=== PATIENT | female | born 1990 ===

== ENCOUNTER 2016-11-23 17:16 | Observation (INO) | payer BC ==
[2016-11-23 17:33] VITALS: RESP 20
[2016-11-23] MEDS ORDERED: DiphenhydrAMINE 50 mg/ml Inj IVP STA (18:37)
[2016-11-23] MEDS ORDERED: Sodium Chloride 0.9% 1,000 ML IV ONE (18:41)
[2016-11-23 18:56] LABS: RBC URINE < 1 /hpf (0-3); URINE BACTERIA OCC (<OCC); URINE BILIRUBIN NEGATIVE (NEGATIVE); URINE BLOOD NEGATIVE (NEGATIVE); URINE COLOR Yellow (YELLOW); URINE GLUCOSE (UA) NORMAL (Normal); URINE KETONE NEGATIVE (NEGATIVE); URINE LEUKOCYTE ESTERASE NEG Leu/uL (Negative); URINE PROTEIN NEGATIVE (NEGATIVE); URINE UROBILINOGEN NORMAL mg/dL (0.2-1.0); WBC URINE 2 /hpf (0-5)
--- NOTE | 2016-11-23 18:56 | C.PDOC ---
History Of Present Illness 26 yo female w/PMHx of migraine come in for evaluation of gradual onset of B/L temples headache for past 3 days. Pt describes headache as throbbing, localized associated with light and noise sensitivity, nausea. Pt admits, similar sx in past and c/w " my usual migraine headache". Pt admits, takes Imitrex " and other pain pill" at home without improvement. Otherwise, pt denies recent illness, fever, chills, denies worse headache of life, visual changes, focal deficits, neck apin, drooling, dysphagia, dyspnea, CP, SOB, cough, abd. pain, V/D, UTI sx. Pt recall last MRI of head " long time ago" and reports to be normal. Pt is under Neurology care in [facility]. Ambulate to Ed for evaluation, not in any apparent distress. Time Seen by Provider: 11/23/16 18:16 Chief Complaint (Nursing): Headache History Per: Patient History/Exam Limitations: no limitations Onset/Duration Of Symptoms: Days (3) Current Symptoms Are (Timing): Still Present Severity: Mild Quality: "Pain", Other (Throbbing) Preceeding Symptoms: None. denies: Visual Disturbances, Known Migraine Symptoms Associated Symptoms: Other (Light and noise sensitivity) Recent travel outside of the [place]: No Past Medical History Reviewed: Historical Data, Nursing Documentation, Vital Signs Vital Signs: Last Vital Signs Temp 98.3 F 11/23/16 17:32 Pulse 92 H 11/23/16 17:32 Resp 20 11/23/16 17:32 BP 105/76 11/23/16 17:32 Pulse Ox 99 11/23/16 21:10 - Medical History PMH: Migraine Family History: States: Unknown Family Hx - Social History Hx Tobacco Use: No Hx Alcohol Use: No Hx Substance Use: No - Immunization History Hx Tetanus Toxoid Vaccination: No Hx Influenza Vaccination: No Hx Pneumococcal Vaccination: No Review Of Systems Except As Marked, All Systems Reviewed And Found Negative. Constitutional: Negative for: Fever, Chills Eyes: Negative for: Vision Change Cardiovascular: Negative for: Chest Pain Respiratory: Negative for: Shortness of Breath Gastrointestinal: Negative for: Vomiting, Abdominal Pain, Diarrhea Genitourinary: Negative for: Dysuria, Frequency Musculoskeletal: Negative for: Neck Pain Neurological: Positive for: Headache, Other (Light and noise sensitivity) Physical Exam - Physical Exam Appears: Well, Non-toxic, No Acute Distress Skin: Normal Color, Warm, No Rash Head: Normacephalic Eye(s): bilateral: PERRL Ear(s): Bilateral: Normal Nose: Normal, No Discharge Oral Mucosa: Moist, No Drooling Throat: Normal, No Erythema, No Exudate, No Drooling Neck: Normal ROM, Supple Chest: Symmetrical Cardiovascular: Rhythm Regular Respiratory: No Decreased Breath Sounds, No Accessory Muscle Use, No Stridor, No Wheezing Gastrointestinal/Abdominal: Soft, No Tenderness, No Distention, No Guarding Back: No CVA Tenderness Extremity: Normal ROM, No Pedal Edema Neurological/Psych: Oriented x3, Normal Speech, Normal Motor, Normal Sensation, Normal Reflexes ED Course And Treatment - Laboratory Results Result Diagrams: 11/23/16 19:06 11/23/16 19:06 O2 Sat by Pulse Oximetry: 99 ED OBSERVATION Discharge: Yes Date of observation admission: 11/23/16 Time of observation admission: 17:23 - Observation admission statement Patient is being placed in observation because:: Migraine headache - Goals of Observation Goals of observation are:: Diagnostics, sx tx, re-eval - Progress Note Progress Note: 11/23/16 At 18:40, pt resting comfortably, not in nay apaprent distress. Afebrile, hemodynamicaly stable. Neurologicaly intact. At20:05, diagnostics review, UA results review and appears normal. Pt reports, mild improvement in headache. Afebrile, hemodynamicalys table. Non-toxic. Tolerant po well in ED. neurologicaly intact. At 21:05, pt reports moderate improvement in headache. Afebrile, hemodynamicaly stable. Non-toxic. neurologicaly intact. Pt has clinical findings c/w migraine headache exacerbation. Pt advised. ref. to F/U with Neuro at [facility] Disposition Counseled Patient/Family Regarding: Studies Performed, Diagnosis, Need For Followup - Disposition Disposition: HOME/ ROUTINE Disposition Time: 21:10 Condition: STABLE - Clinical Impression Clinical Impression: Migraine - Scribe Statement The provider has reviewed the documentation as recorded by the Madysonibtheresa Miller All medical record entries made by the Madysonibtheresa were at my direction and personally dictated by me. I have reviewed the chart and agree that the record accurately reflects my personal performance of the history, physical exam, medical decision making, and the department course for this patient. I have also personally directed, reviewed, and agree with the discharge instructions and disposition.
[2016-11-23] MEDS ORDERED: DiphenhydrAMINE 50 mg/ml Inj ONE (19:00)
[2016-11-23 19:09] LABS: BASO % 0.4 % (0.0-2.0); EOS # 0.2 K/uL (0.0-0.7); EOS % 3.1 % (0.0-4.0); HEMATOCRIT 40.6 % (34.0-47.0); LYMPH # 3.6 K/uL (1.0-4.3); LYMPH % 51.8 % (20.0-40.0); MEAN CORPUSCULAR HEMOGLOBIN 30.2 pg (27.0-31.0); MEAN CORPUSCULAR HGB CONC 33.5 g/dL (33.0-37.0); MEAN PLATELET VOLUME 8.2 fL (7.2-11.7); MONO # 0.5 K/uL (0.0-0.8); MONO % 6.7 % (0.0-10.0); NRBC % 0.1 % (0.0-2.0); RED CELL DISTRIBUTION WIDTH 12.3 % (11.5-14.5); WHITE BLOOD COUNT 6.9 K/uL (4.8-10.8)
[2016-11-23 19:18] LABS: CHLORIDE 100 mmol/L (98-107); SODIUM 139 mmol/L (132-148)
[2016-11-23 19:19] LABS: POTASSIUM 3.7 mmol/L (3.6-5.2)
[2016-11-23 19:21] LABS: GFR AFRICAN-AMERICAN > 60
[2016-11-23 19:22] LABS: BLOOD UREA NITROGEN 8 mg/dL (7-17); CALCIUM 8.9 mg/dl (8.6-10.4); CARBON DIOXIDE 30 mmol/L (22-30); GLUCOSE,RANDOM 71 mg/dL (65-105)
[2016-11-23 21:21] VITALS: BP 110/70; PULSE 77; TEMP 98; O2SAT 100
== END 2016-11-23 21:10 | disposition home or self-care (01) ==
LOC: C.ER 17:16 → SUPCPDRO 17:16 → C.9OBSV 17:41
PROVIDERS: ADMIT Internal Medicine; ATTEND Internal Medicine
DX: G43.909 Migraine, unspecified, not intractable, without status migrainosus (principal)
CPT/HCPCS: 36415; 80048; 81001; 85025; 96360; 96374; G0378; J1200; J1885; J2765

== ENCOUNTER 2017-01-15 21:08 | Emergency (ER) | payer BC ==
[2017-01-15] MEDS ORDERED: Sodium Chloride 0.9% 1,000 ML IV ONE (23:03)
[2017-01-15] MEDS ORDERED: Sodium Chloride 0.9% 1,000 ML ONE (23:15)
[2017-01-15 23:21] LABS: BASO % 0.3 % (0.0-2.0); EOS # 0.2 K/uL (0.0-0.7); EOS % 3.3 % (0.0-4.0); HEMATOCRIT 36.7 % (34.0-47.0); LYMPH # 4.3 K/uL (1.0-4.3); LYMPH % 59.8 % (20.0-40.0); MEAN CELL VOLUME 90.5 fL (81.0-99.0); MEAN CORPUSCULAR HEMOGLOBIN 30.8 pg (27.0-31.0); MEAN PLATELET VOLUME 8.5 fL (7.2-11.7); MONO # 0.4 K/uL (0.0-0.8); MONO % 6.1 % (0.0-10.0); NRBC % 0.1 % (0.0-2.0); RBC URINE 1 /hpf (0-3); RED CELL DISTRIBUTION WIDTH 11.9 % (11.5-14.5); URINE BILIRUBIN NEGATIVE (NEGATIVE); URINE BLOOD NEGATIVE (NEGATIVE); URINE COLOR Yellow (YELLOW); URINE GLUCOSE (UA) NORMAL (Normal); URINE KETONE NEGATIVE (NEGATIVE); URINE LEUKOCYTE ESTERASE NEG Leu/uL (Negative); URINE PROTEIN NEGATIVE (NEGATIVE); URINE UROBILINOGEN NORMAL mg/dL (0.2-1.0); WHITE BLOOD COUNT 7.1 K/uL (4.8-10.8)
[2017-01-15] MEDS ORDERED: Iohexol 240 (50 ml) PO STA (23:25)
[2017-01-15 23:30] LABS: CHLORIDE 101 mmol/L (98-107)
[2017-01-15 23:31] LABS: POTASSIUM 3.5 mmol/L (3.6-5.2); SODIUM 139 mmol/L (132-148)
[2017-01-15 23:33] LABS: ALB/GLOB RATIO 1.3 (1.0-2.1); AST/SGOT 30 U/L (14-36); BILIRUBIN,TOTAL 0.5 mg/dL (0.2-1.3); BLOOD UREA NITROGEN 12 mg/dL (7-17); CARBON DIOXIDE 28 mmol/L (22-30); GFR AFRICAN-AMERICAN > 60; TOTAL PROTEIN 7.1 g/dL (6.3-8.3)
[2017-01-15 23:34] LABS: ALKALINE PHOSPHATASE 45 U/L (38-126); ALT/SGPT 32 U/L (9-52); CALCIUM 8.9 mg/dl (8.6-10.4); GLUCOSE,RANDOM 86 mg/dL (65-105)
[2017-01-15] MEDS ORDERED: Iohexol 240 (50 ml) ONE (23:40)
[2017-01-16] MEDS ORDERED: Iodixanol 320 MG/ML 100 ML BOTTLE IV ONE (00:11)
[2017-01-16] MEDS ORDERED: Morphine 4 MG/ML VIAL ONE (02:33)
[2017-01-16] MEDS ORDERED: cefTRIAXone (Rocephin) 250 mg Inj IM STA (04:11)
--- NOTE | 2017-01-16 04:52 | C.PDOC ---
Time Seen by Provider: 01/15/17 22:57 Chief Complaint (Nursing): Abdominal Pain History Per: Patient, Family Onset/Duration Of Symptoms: Days (2) Current Symptoms Are (Timing): Worse Severity: Moderate Location Of Pain/Discomfort: RLQ Associated Symptoms: Nausea Alleviating Factors: None Additional History Per: Prior Records Abnormal Vaginal Bleeding: No Past Medical History Reviewed: Historical Data, Nursing Documentation, Vital Signs Vital Signs: Last Vital Signs Temp 98.1 F 01/16/17 03:01 Pulse 75 01/16/17 03:01 Resp 18 01/16/17 03:01 BP 113/71 01/16/17 03:01 Pulse Ox 99 01/16/17 04:53 - Medical History PMH: Migraine Surgical History: No Surg Hx Family History: States: Unknown Family Hx - Social History Hx Tobacco Use: No Hx Alcohol Use: No Hx Substance Use: No - Immunization History Hx Tetanus Toxoid Vaccination: No Hx Influenza Vaccination: No Hx Pneumococcal Vaccination: No Review Of Systems Except As Marked, All Systems Reviewed And Found Negative. Constitutional: Negative for: Fever, Weakness Cardiovascular: Negative for: Chest Pain Respiratory: Negative for: Shortness of Breath Gastrointestinal: Positive for: Nausea, Abdominal Pain. Negative for: Vomiting , Diarrhea Genitourinary: Negative for: Dysuria, Vaginal Bleeding Musculoskeletal: Negative for: Neck Pain Skin: Negative for: Rash Neurological: Negative for: Weakness, Numbness, Seizures, Altered Mental Status Physical Exam - Physical Exam Appears: Non-toxic, No Acute Distress Skin: Normal Color, Warm, Dry, No Rash Head: Atraumatic, Normacephalic Eye(s): bilateral: Normal Inspection, PERRL, EOMI Neck: Normal ROM, Supple Cardiovascular: Rhythm Regular Respiratory: Normal Breath Sounds, No Accessory Muscle Use Gastrointestinal/Abdominal: Soft, No Tenderness Back: No CVA Tenderness Pelvic: No Vaginal Bleeding, Vaginal Discharge (white), Cervical Motion Tenderness, Adnexal Tenderness (right) Extremity: Normal ROM Neurological/Psych: Oriented x3, Normal Motor, Normal Sensation ED Course And Treatment - Laboratory Results Result Diagrams: 01/15/17 23:10 01/15/17 23:10 Lab Interpretation: No Acute Changes Urine POC: Negative O2 Sat by Pulse Oximetry: 99 Pulse Ox Interpretation: Normal - CT Scan/US CT abd/pelv Other Rad Studies (CT/US): Read By Radiologist, Radiology Report Reviewed CT/US Interpretation: Prominent vessels within the pelvis. Pelvic US Other Rad Studies (CT/US): Read By Radiologist, Radiology Report Reviewed CT/US Interpretation: NAD Progress - Interventions Interventions:: Observation, Intravenous fluid - Medications Administered Intravenous: Antiemetic, NSAID, Opiate - Data Reviewed Data Reviewed: Lab, Diagnostic imaging, Old records - Patient Status Patient status: Mostly improved - Continuity of Care Discussed patient case with:: Patient, ED Nurse - Patient Plan Patient Plan: Discharge, F/U with PCP Disposition Counseled Patient/Family Regarding: Studies Performed, Diagnosis, Need For Followup, Rx Given - Disposition Disposition: HOME/ ROUTINE Disposition Time: 05:01 Condition: IMPROVED Additional Instructions: Follow up with your Outpatient Coding Specialist this week. Return to the ER if you develop fever, vomiting, worsening of symptoms or if you have any other concerns. Prescriptions: Doxycycline Hyclate 100 mg PO BID #28 cap Ibuprofen [Motrin Tab] 600 mg PO Q8 PRN #30 tab PRN Reason: Pain, Moderate (4-7) Metronidazole [Flagyl] 500 mg PO BID #28 tab Instructions: Pelvic Inflammatory Disease (ED) - Clinical Impression Clinical Impression: PID (acute pelvic inflammatory disease)
[2017-01-16 05:31] VITALS: BP 96/65; PULSE 78; RESP 16; TEMP 97.6; O2SAT 98
--- NOTE | 2017-01-16 09:42 | CT ---
PROCEDURE: CT Abdomen and Pelvis with contrast HISTORY: RLQ pain COMPARISON: 06/19/2013 TECHNIQUE: Contrast dose: 100 mL Visipaque 320 Radiation dose: Total exam DLP = 339.58 mGy-cm. This CT exam was performed using one or more of the following dose reduction techniques: Automated exposure control, adjustment of the mA and/or kV according to patient size, and/or use of iterative reconstruction technique. FINDINGS: LOWER THORAX: Bilateral breast augmentation prostheses. No infiltrate/ effusion. LIVER: Unremarkable. No gross lesion or ductal dilatation. GALLBLADDER AND BILE DUCTS: Unremarkable. PANCREAS: Unremarkable. No gross lesion or ductal dilatation. SPLEEN: Unremarkable. ADRENALS: Unremarkable. No mass. KIDNEYS AND URETERS: Unremarkable. No hydronephrosis. No solid mass. VASCULATURE: No aortic aneurysm. Prominent pelvic veins bilaterally raising concern for pelvic congestion syndrome. Please correlate. BOWEL: Unremarkable. No obstruction. No gross mural thickening. APPENDIX: Normal appendix. PERITONEUM: Trace fluid in cul-de-sac. LYMPH NODES: Unremarkable. No enlarged lymph nodes. BLADDER: Unremarkable. REPRODUCTIVE: Normal uterus. BONES: No acute fracture. OTHER FINDINGS: None. IMPRESSION: No evidence of acute appendicitis. Prominent pelvic veins raises suspicion of pelvic congestion syndrome. Please correlate. No other acute abnormality. Preliminary interpretation of this examination was reported by [facility] at 2 a.m. on 01/16/2017. There is concurrence of this report with the preliminary interpretation.
--- NOTE | 2017-01-16 11:39 | US ---
HISTORY: Right pelvic pain COMPARISON: None available. TECHNIQUE: Transabdominal and transvaginal FINDINGS: UTERUS: Measures 7.4 x 3.3 x 5.0 cm. Normal in size and appearance. No fibroid or other mass lesion seen. ENDOMETRIUM: Measures 4 mm in diameter. Unremarkable. CERVIX: No cervical abnormality identified. RIGHT OVARY: Measures 3.6 x 2.1 x 3.7 cm. No solid mass. Normal flow. LEFT OVARY: Measures 2.6 x 1.8 x 3.0 cm. No solid mass. Normal flow. FREE FLUID: No significant free fluid noted. OTHER FINDINGS: None. IMPRESSION: Unremarkable pelvic ultrasound examination.
== END 2017-01-16 05:44 | disposition home or self-care (01) ==
LOC: C.ER 21:08
DX: N73.9 Female pelvic inflammatory disease, unspecified (principal)
CPT/HCPCS: 74177; 76830; 76856; 80053; 81001; 84703; 85025; 87491; 87591; 96361; 96372; 96374; 96375; 99285; J0696; J1885; J2270; J2405; J7040; Q9966; Q9967

== ENCOUNTER 2017-10-02 20:39 | Emergency (ER) | payer BC ==
--- NOTE | 2017-10-02 22:49 | CT ---
EXAM: CT Head Without Intravenous Contrast CLINICAL HISTORY: 27 years old, female; Pain; Headache; Headache not specified; Additional info: Moderate left sided headache TECHNIQUE: Axial computed tomography images of the head/brain without intravenous contrast. All CT scans at this facility use one or more dose reduction techniques, viz.: automated exposure control; ma/kV adjustment per patient size (including targeted exams where dose is matched to indication; i.e. head); or iterative reconstruction technique. Coronal and sagittal reformatted images were created and reviewed. COMPARISON: No relevant prior studies available. FINDINGS: Brain: Hypoattenuating focus in the right middle cranial fossa with CSF attenuation measuring up to 3 cm in maximal dimension, appearance most consistent with right middle cranial fossa arachnoid cyst. No hemorrhage. No significant white matter disease. No edema. Benign calcifications/dural calcification calcification. Ventricles: No hydrocephalus. Bones: Skull is intact. Sinuses: No acute sinusitis. Mastoid air cells: No mastoid effusion. Soft tissue: Question implant anterior to the nasal bone. Correlate clinically. IMPRESSION: Hypoattenuating focus in the right middle cranial fossa with CSF attenuation measuring up to 3 cm in maximal dimension, appearance most consistent with right middle cranial fossa arachnoid cyst. Further evaluation can be performed if MRI as warranted. Additional details/findings as above.
--- NOTE | 2017-10-02 23:16 | C.PDOC ---
History Of Present Illness 27 year old female with a PMHx of migraines presents complaining of left-sided headache, different from her typical migraine headaches. Patient reports her scalp is sensitive to touch. Took her migraine medication as well as naproxen, with no improvement. Patient states she had a similar episode 7 years ago, and had a 5 day work-up in a [facility] but cannot recall the diagnosis ( possible brain cyst). Also notes that she has seen a neurologist in [place] before. Denies any fall/injury, weakness, numbness, visual changes, or changes in speech. Time Seen by Provider: 10/02/17 21:00 Chief Complaint (Nursing): Headache History Per: Patient History/Exam Limitations: no limitations Onset/Duration Of Symptoms: Days (x5) Current Symptoms Are (Timing): Still Present Past Medical History Reviewed: Historical Data, Nursing Documentation, Vital Signs Vital Signs: Last Vital Signs Temp 98 F 10/02/17 23:28 Pulse 73 10/02/17 23:28 Resp 20 10/02/17 23:28 BP 114/79 10/02/17 23:28 Pulse Ox 99 10/03/17 04:28 - Medical History PMH: Migraine Family History: States: Unknown Family Hx - Social History Hx Tobacco Use: No Hx Alcohol Use: Yes Hx Substance Use: No - Immunization History Hx Tetanus Toxoid Vaccination: No Hx Influenza Vaccination: No Hx Pneumococcal Vaccination: No Review Of Systems Except As Marked, All Systems Reviewed And Found Negative. Constitutional: Negative for: Other (Fall/injury) Eyes: Negative for: Vision Change Neurological: Positive for: Other (Pain to left side of scalp). Negative for: Weakness, Numbness, Change in Speech Physical Exam - Physical Exam Appears: Non-toxic, No Acute Distress Skin: Normal Color, Warm, Dry Head: Normacephalic, Tenderness (to the left mid-scalp area), No Swelling, No Laceration, No Other (External mass or hematoma) Eye(s): bilateral: Normal Inspection, PERRL, EOMI Ear(s): Bilateral: Normal Nose: Normal Oral Mucosa: Moist Neck: Normal ROM, No Midline Cervical Tenderness, Supple Chest: Symmetrical Cardiovascular: Rhythm Regular, No Murmur Respiratory: Normal Breath Sounds, No Accessory Muscle Use Gastrointestinal/Abdominal: Soft, No Tenderness, No Distention Extremity: Bilateral: Atraumatic, Normal Color And Temperature, Normal ROM Neurological/Psych: Oriented x3, Normal Speech, Normal Cognition, Normal Cranial Nerves, No Cerebellar Signs, Normal Motor, Normal Sensation, Normal Reflexes Gait: Steady ED Course And Treatment O2 Sat by Pulse Oximetry: 99 (RA) Pulse Ox Interpretation: Normal - CT Scan/US CT Head Other Rad Studies (CT/US): Read By Radiologist, Radiology Report Reviewed CT/US Interpretation: FINDINGS: Brain: Hypoattenuating focus in the right middle cranial fossa with CSF attenuation measuring up to. 3 cm in maximal dimension, appearance most consistent with right middle cranial fossa arachnoid. cyst. No hemorrhage. No significant white matter disease. No edema. Benign calcifications/dural. calcification calcification. Ventricles: No hydrocephalus. Bones: Skull is intact. Sinuses: No acute sinusitis. Mastoid air cells: No mastoid effusion. Soft tissue: Question implant anterior to the nasal bone. Correlate clinically. IMPRESSION: Hypoattenuating focus in the right middle cranial fossa with CSF attenuation measuring up to 3 cm. in maximal dimension, appearance most consistent with right middle cranial fossa arachnoid cyst. Further evaluation can be performed if MRI as warranted. Additional details/findings as above. Progress Note: Pt given Toradol IM. CT Head ordered. Patient has remained stable in the ER, no neuro deficits and is laughing with family at bedside. CT findings discussed w/ patient, who agrees with plan for outpatient follow up, and will call her neurologist in [place] tomorrow for appointment. Return precautions discussed with patient who understand and agreed to pain. Disposition Counseled Patient/Family Regarding: Studies Performed, Diagnosis, Need For Followup - Disposition Referrals: Non [facility] Provider, [Primary Care Provider] - Disposition: HOME/ ROUTINE Disposition Time: 23:13 Condition: STABLE Additional Instructions: Continue naproxen BID may add tylenol PO Please follow up with your neurologist tomorrow Return to ER if worse Instructions: Headache, Adult (DC), Cysts in the Brain Forms: [facility] (Yi), Work Excuse - Clinical Impression Clinical Impression: Headache, Arachnoid cyst - PA / [employer] APPLICATION ARCHITECT / Resident Statement MD/DO has reviewed & agrees with the documentation as recorded. - Scribe Statement The provider has reviewed the documentation as recorded by the Scribe (Sunshine Yañez) All medical record entries made by the Scribe were at my direction and personally dictated by me. I have reviewed the chart and agree that the record accurately reflects my personal performance of the history, physical exam, medical decision making, and the department course for this patient. I have also personally directed, reviewed, and agree with the discharge instructions and disposition.
[2017-10-02 23:28] VITALS: BP 114/79; PULSE 73; RESP 20; TEMP 98
[2017-10-03 02:58] VITALS: O2SAT 99
== END 2017-10-02 23:29 | disposition home or self-care (01) ==
LOC: C.ER 20:39 → SUPCPDRO 20:39 → C.ER 23:29
DX: R51 Headache (principal); G93.0 Cerebral cysts
CPT/HCPCS: 70450; 96372; 99284; J1885

== ENCOUNTER 2018-02-07 23:56 | Emergency (ER) | payer BC ==
[2018-02-08 00:10] VITALS: PULSE 82; O2SAT 100
[2018-02-08 00:31] LABS: SQUAMOUS EPITHIAL 2 /hpf (0-5); URINE BACTERIA RARE (<OCC); URINE BILIRUBIN NEGATIVE (NEGATIVE); URINE BLOOD NEGATIVE (NEGATIVE); URINE CLARITY Hazy (Clear); URINE COLOR Yellow (YELLOW); URINE GLUCOSE (UA) NORMAL (Normal); URINE LEUKOCYTE ESTERASE NEG Leu/uL (Negative); URINE PROTEIN NEGATIVE (NEGATIVE); URINE UROBILINOGEN NORMAL mg/dL (0.2-1.0)
[2018-02-08 00:32] LABS: HCG,QUALITATIVE URINE POSITIVE (NEGATIVE)
--- NOTE | 2018-02-08 00:33 | C.PDOC ---
History Of Present Illness 27 year old female presents to the ER with a complaint of hypogastric pain, dysuria, and urinary frequency for the past 3 days. Denies fever or vaginal bleeding. Chief Complaint (Nursing): Female Genitourinary History Per: Patient History/Exam Limitations: no limitations Onset/Duration Of Symptoms: Days Current Symptoms Are (Timing): Still Present Location Of Pain/Discomfort: Other (Hypogastric) Associated Symptoms: Urinary Symptoms (Dysuria). denies: Fever Exacerbating Factors: None Alleviating Factors: None Recent travel outside of the [place]: No Abnormal Vaginal Bleeding: No Past Medical History Reviewed: Historical Data, Nursing Documentation, Vital Signs Vital Signs: Last Vital Signs Temp 99.4 F 02/08/18 00:07 Pulse 82 02/08/18 00:07 Resp 18 02/08/18 00:07 BP 126/74 02/08/18 00:07 Pulse Ox 100 02/08/18 04:00 - Medical History PMH: Migraine Family History: States: Unknown Family Hx - Social History Hx Tobacco Use: No Hx Alcohol Use: Yes Hx Substance Use: No - Immunization History Hx Tetanus Toxoid Vaccination: No Hx Influenza Vaccination: No Hx Pneumococcal Vaccination: No Review Of Systems Constitutional: Negative for: Fever Cardiovascular: Negative for: Chest Pain, Palpitations Respiratory: Negative for: Cough, Shortness of Breath Gastrointestinal: Positive for: Abdominal Pain. Negative for: Nausea, Vomiting Genitourinary: Positive for: Dysuria. Negative for: Vaginal Bleeding Physical Exam - Physical Exam Appears: Non-toxic, No Acute Distress Skin: Normal Color, Warm, Dry Head: Atraumatic, Normacephalic Eye(s): bilateral: Normal Inspection Oral Mucosa: Moist Neck: Normal, Supple Chest: Symmetrical, No Tenderness Cardiovascular: Rhythm Regular Respiratory: Normal Breath Sounds, No Rales, No Rhonchi, No Wheezing Gastrointestinal/Abdominal: Soft, Tenderness (Mild hypogastric), No Guarding, No Rebound Back: No CVA Tenderness Neurological/Psych: Oriented x3, Normal Speech ED Course And Treatment O2 Sat by Pulse Oximetry: 100 (Room air) Pulse Ox Interpretation: Normal Progress Note: Urinalysis ordered. Disposition Counseled Patient/Family Regarding: Diagnosis - Disposition Referrals: Non [facility] Provider, [Primary Care Provider] - [facility] at [facility] [Outside] Disposition: HOME/ ROUTINE Disposition Time: 03:58 Condition: STABLE Prescriptions: Acetaminophen [Tylenol 325mg tab] 650 mg PO Q6 #20 tab Multivit/Folic Acid/I [ Plus] 1 tab PO DAILY #30 tab Instructions: Symptoms, - The Second Month, Round Ligament Pain Forms: [facility] (Greek) - POA Present On Arrival: None - Clinical Impression Clinical Impression: , Round ligament pain - Scribe Statement The provider has reviewed the documentation as recorded by the Scribtheresa Donahue All medical record entries made by the Scribtheresa were at my direction and personally dictated by me. I have reviewed the chart and agree that the record accurately reflects my personal performance of the history, physical exam, medical decision making, and the department course for this patient. I have also personally directed, reviewed, and agree with the discharge instructions and disposition.
[2018-02-08 04:14] VITALS: BP 92/56; RESP 16; TEMP 98.3
--- NOTE | 2018-02-08 08:27 | US ---
PROCEDURE: OB Pelvic Ultrasound HISTORY: lower abd pain/ COMPARISON: None available. FINDINGS: UTERUS: Single Live intrauterine gestation. CRL equivalent to 6 weeks 5 days gestatioin Gestational sac diameter equivalent to 6 weeks 0 days gestation age (Ultrasound estimated): 6 weeks 3 days Date of delivery (Ultrasound estimated) : 10/01/2018 Heart rate: 125 bpm. Sherry-gestational hemorrhage: None. 3-4 mm yolk sac visualized Uterus measures 7.7 x 4.3 x 5.6 cm. No mass CERVIX: The cervix measures 3.9 cm in length and is closed. RIGHT OVARY: Measures 3.3 x 1.3 x 2.3 cm. No mass. Normal flow. LEFT OVARY: Measures 2.4 x 1.8 x 2.3 cm. No mass. Normal flow. FREE FLUID: None. OTHER FINDINGS: None. IMPRESSION: Single live intrauterine gestation of approximately 6 weeks 3 days. No subchorionic hemorrhage. heart rate 125. Cervix long and closed. The preliminary findings for this examination were reported by [facility] at 3:35 a.m. on 02/08/2018. There is concurrence of this report with the preliminary findings.
== END 2018-02-08 04:14 | disposition home or self-care (01) ==
LOC: C.ER 23:56 → SUPCPDRO 23:56 → C.ER 02-08 04:14
DX: O26.891 Other specified pregnancy related conditions, first trimester (principal); R10.2 Pelvic and perineal pain; Z3A.01 Less than 8 weeks gestation of pregnancy

== ENCOUNTER 2018-03-01 18:26 | Emergency (ER) | payer BC ==
[2018-03-01 18:41] VITALS: TEMP 98.6
--- NOTE | 2018-03-01 19:41 | C.PDOC ---
History Of Present Illness 27 year old female patient who is 9 weeks presents to the ER with dizziness, vertigo, nausea and headache. Patient states she also has SOB when walking up the stairs and lower abdominal pain. Patient denies chest pain, dysuria, urine incontinence, constipation, vomiting, diarrhea or vaginal bleeding. Time Seen by Provider: 03/01/18 19:18 Chief Complaint (Nursing): Dizziness/Lightheaded History Per: Patient History/Exam Limitations: no limitations Current Symptoms Are (Timing): Still Present Past Medical History Reviewed: Historical Data, Nursing Documentation, Vital Signs Vital Signs: Last Vital Signs Temp 98.6 F 03/01/18 18:34 Pulse 71 03/01/18 22:45 Resp 16 03/01/18 22:45 BP 96/57 L 03/01/18 22:45 Pulse Ox 100 03/01/18 22:45 - Medical History PMH: Migraine Family History: States: Unknown Family Hx - Social History Hx Tobacco Use: No Hx Alcohol Use: Yes Hx Substance Use: No - Immunization History Hx Tetanus Toxoid Vaccination: No Hx Influenza Vaccination: No Hx Pneumococcal Vaccination: No Review Of Systems Cardiovascular: Negative for: Chest Pain Respiratory: Positive for: Shortness of Breath (when walking up steps) Gastrointestinal: Positive for: Nausea, Abdominal Pain (low). Negative for: Vomiting, Diarrhea, Constipation Genitourinary: Negative for: Dysuria, Incontinence, Vaginal Bleeding Neurological: Positive for: Headache, Dizziness, Other (vertigo) Physical Exam - Physical Exam Appears: Well, Non-toxic, No Acute Distress Skin: Normal Color, Warm, Dry Head: Atraumatic, Normacephalic Eye(s): bilateral: Normal Inspection Ear(s): Bilateral: Normal Oral Mucosa: Moist Neck: Normal ROM, Supple Chest: Symmetrical, No Deformity Cardiovascular: Rhythm Regular Respiratory: Normal Breath Sounds, No Rales, No Rhonchi, No Wheezing Gastrointestinal/Abdominal: Soft, No Tenderness Back: No CVA Tenderness Extremity: Normal ROM (x4) Neurological/Psych: Oriented x3, Normal Speech, Normal Motor, Normal Sensation, Normal Reflexes Gait: Steady ED Course And Treatment - Laboratory Results Result Diagrams: 03/01/18 20:07 03/01/18 20:07 Lab Interpretation: No Acute Changes O2 Sat by Pulse Oximetry: 97 (RA) Pulse Ox Interpretation: Normal Progress Note: Patient treated with 2 liters of IV fluids, Zofran and Meclizine. She continues to feel dizzy but is less nauseated. She appears comfortable and is neurologically intact. Reevaluation Time: 23:46 Reassessment Condition: Improved Medical Decision Making Medical Decision Making: Impression: 9 weeks with dizziness, vertigo, nausea and headache Plans: -- blood work -- IV fluids -- UA Reassess: On re-eval, pt is afebrile, hemodynamically stable. Non-toxic. PulseOx 97% on RA. ENT: no acute findings. Uvula midline. Neck: Supple, (-) JVD. Lungs: CTA B/L, BS equal B/L. Abd: Soft, non-tender. Neurologically intact. Patient is advised to f/u with OBGYN in 1-2 days Disposition Counseled Patient/Family Regarding: Studies Performed, Diagnosis, Need For Followup, Rx Given - Disposition Referrals: [facility] [Outside] Disposition: HOME/ ROUTINE Disposition Time: 23:47 Condition: IMPROVED Additional Instructions: Encourage plenty of fluids and rest. Prescriptions: Meclizine [Meclizine*] 25 mg PO TID PRN #20 tab PRN Reason: Dizziness Ondansetron ODT [Zofran ODT] 1 odt PO TID PRN #10 odt PRN Reason: Nausea/Vomiting Instructions: Vertigo (a Type of Dizziness), - The Third Month Forms: [facility] (Vietnamese), Work Excuse - Clinical Impression Clinical Impression: , Vertigo - Scribe Statement The provider has reviewed the documentation as recorded by the Sarbjit Becerra Do Provider Attestation: All medical record entries made by the Sarbjit were at my direction and personally dictated by me. I have reviewed the chart and agree that the record accurately reflects my personal performance of the history, physical exam, medical decision making, and the department course for this patient. I have also personally directed, reviewed, and agree with the discharge instructions and disposition.
[2018-03-01] MEDS ORDERED: Sodium Chloride 0.9% 1,000 ML IV ONE ×2 (19:42→21:52)
[2018-03-01 20:12] LABS: BASO # 0.1 K/uL (0.0-0.2); BASO % 0.5 % (0.0-2.0); EOS # 0.1 K/uL (0.0-0.7); EOS % 1.2 % (0.0-4.0); HEMOGLOBIN 13.3 g/dL (11.0-16.0); LYMPH # 3.4 K/uL (1.0-4.3); LYMPH % 30.6 % (20.0-40.0); MEAN CELL VOLUME 90.3 fL (81.0-99.0); MEAN CORPUSCULAR HEMOGLOBIN 31.2 pg (27.0-31.0); MEAN CORPUSCULAR HGB CONC 34.6 g/dL (33.0-37.0); MEAN PLATELET VOLUME 7.7 fL (7.2-11.7); MONO # 0.7 K/uL (0.0-0.8); MONO % 6.2 % (0.0-10.0); NEUT # 6.8 K/uL (1.8-7.0); NEUT % 61.5 % (50.0-75.0); NRBC % 0.1 % (0.0-2.0); RBC 4.27 Mil/uL (3.80-5.20); RED CELL DISTRIBUTION WIDTH 12.1 % (11.5-14.5); WHITE BLOOD COUNT 11.1 K/uL (4.8-10.8)
[2018-03-01 20:27] LABS: ALB/GLOB RATIO 1.5 (1.0-2.1); ALBUMIN 4.2 g/dL (3.5-5.0); ALT/SGPT 23 U/L (9-52); AST/SGOT 19 U/L (14-36); BLOOD UREA NITROGEN 8 mg/dL (7-17); CALCIUM 9.3 mg/dl (8.6-10.4); GFR AFRICAN-AMERICAN > 60; GFR NON-AFRICAN AMERICAN > 60
[2018-03-01 20:47] LABS: SQUAMOUS EPITHIAL 5 /hpf (0-5); URINE BACTERIA FEW (<OCC); URINE BILIRUBIN NEGATIVE (NEGATIVE); URINE BLOOD NEGATIVE (NEGATIVE); URINE CLARITY Clear (Clear); URINE COLOR Yellow (YELLOW); URINE GLUCOSE (UA) NORMAL (Normal); URINE LEUKOCYTE ESTERASE TRACE Leu/uL (Negative); URINE PROTEIN NEGATIVE (NEGATIVE); URINE UROBILINOGEN NORMAL mg/dL (0.2-1.0)
[2018-03-01 22:46] VITALS: RESP 16
[2018-03-01 23:47] VITALS: BP 99/65; PULSE 67; O2SAT 97
== END 2018-03-02 00:06 | disposition home or self-care (01) ==
LOC: C.ER 18:26
DX: O26.891 Other specified pregnancy related conditions, first trimester (principal); R42 Dizziness and giddiness; Z3A.09 9 weeks gestation of pregnancy
CPT/HCPCS: 80053; 81001; 82948; 84702; 85025; 96361; 96374; 99285; J2405; J7030

== ENCOUNTER 2018-05-11 12:26 | Emergency (ER) | payer BC, MEDICAID ==
[2018-05-11 12:48] VITALS: BP 104/70; PULSE 88; TEMP 99.5; O2SAT 99; BMI 21.5
--- NOTE | 2018-05-11 13:30 | C.PDOC ---
History Of Present Illness 28 y/o female, 20 weeks , present to the ER complaining of nasal congestion and persistent dry cough which has been present for the past 3 days. Patient states that she took Tylenol without relief. Patient denies having fever, chills, CP, SOB, leg pain, nausea, vomiting, abdominal pain, and vaginal bleeding. Time Seen by Provider: 05/11/18 13:05 Chief Complaint (Nursing): Cough, Cold, Congestion History Per: Patient History/Exam Limitations: no limitations Onset/Duration Of Symptoms: Days Current Symptoms Are (Timing): Still Present Past Medical History Reviewed: Historical Data, Nursing Documentation, Vital Signs Vital Signs: Last Vital Signs Temp 99.5 F 05/11/18 12:46 Pulse 88 05/11/18 12:46 Resp 18 05/11/18 12:46 BP 104/70 05/11/18 12:46 Pulse Ox 99 05/11/18 12:46 - Medical History PMH: Migraine Other Surgeries: Hx of surgeries Family History: States: No Known Family Hx - Social History Hx Tobacco Use: No Hx Alcohol Use: Yes Hx Substance Use: No - Immunization History Hx Tetanus Toxoid Vaccination: No Hx Influenza Vaccination: No Hx Pneumococcal Vaccination: No Review Of Systems Except As Marked, All Systems Reviewed And Found Negative. Constitutional: Negative for: Fever, Chills ENT: Positive for: Nose Congestion Cardiovascular: Negative for: Chest Pain Respiratory: Positive for: Cough. Negative for: Shortness of Breath Gastrointestinal: Negative for: Nausea, Vomiting, Abdominal Pain Genitourinary: Negative for: Vaginal Bleeding Musculoskeletal: Negative for: Leg Pain Physical Exam - Physical Exam Appears: Non-toxic, No Acute Distress, Other (dry cough) Skin: Normal Color, Warm, Dry Head: Atraumatic, Normacephalic Eye(s): bilateral: Normal Inspection, EOMI Ear(s): Bilateral: Normal Nose: Other (nasal congestion) Oral Mucosa: Moist Throat: Normal, No Erythema, No Exudate Neck: Normal ROM, Supple Chest: Symmetrical Cardiovascular: Rhythm Regular Respiratory: Normal Breath Sounds, No Rales, No Rhonchi, No Wheezing Extremity: Normal ROM Neurological/Psych: Oriented x3, Normal Speech ED Course And Treatment O2 Sat by Pulse Oximetry: 99 (RA) Pulse Ox Interpretation: Normal Progress Note: Patient has been discharged with prescriptions for Albuterol, Azithromycin, and Claritin. Patient has been instructed to follow up with PMD in 2-3 days. Disposition - Disposition Referrals: [facility] [Outside] Disposition: HOME/ ROUTINE Disposition Time: 13:28 Condition: STABLE Additional Instructions: Follow up with your primary medical doctor or clinic in 2-3 days for further evaluation. Take medications as prescribed. Return to the emergency department at any time if symptoms persist or worsen. 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 - Scribe Statement The provider has reviewed the documentation as recorded by the Sarbjit Coates Provider Attestation All medical record entries made by the Madysonibe were at my direction and personally dictated by me. I have reviewed the chart and agree that the record accurately reflects my personal performance of the history, physical exam, medical decision making, and the department course for this patient. I have also personally directed, reviewed, and agree with the discharge instructions and disposition.
[2018-05-11 13:54] VITALS: RESP 20
== END 2018-05-11 13:53 | disposition home or self-care (01) ==
LOC: C.ER 12:26
DX: J40 Bronchitis, not specified as acute or chronic (principal); O99.512 Diseases of the respiratory system complicating pregnancy, second trimester; Z3A.20 20 weeks gestation of pregnancy

== ENCOUNTER 2018-05-19 17:59 | Emergency (ER) | payer MEDICAID ==
[2018-05-19 18:45] VITALS: BMI 15.3
[2018-05-19 19:04] LABS: SQUAMOUS EPITHIAL 11 /hpf (0-5); URINE BILIRUBIN NEGATIVE (NEGATIVE); URINE BLOOD NEGATIVE (NEGATIVE); URINE CLARITY Clear (Clear); URINE COLOR Yellow (YELLOW); URINE GLUCOSE (UA) 1+ mg/dL (Normal); URINE LEUKOCYTE ESTERASE NEG Leu/uL (Negative); URINE PROTEIN NEGATIVE (NEGATIVE); URINE UROBILINOGEN NORMAL mg/dL (0.2-1.0)
--- NOTE | 2018-05-23 11:45 | OBHP ---
Datetime: 05/19/2018 20:07 IP Adm Impression: , intrauterine ; No Active Labor; Intact Membranes IP Admit Plan: Observation/Evaluation; Discharge home Admit Comment, IP Provider: 28 yo female G1 with an IUP at 22 weeks and presents with c/o of vaginal spotting noted on tissue after voiding x 3 at work today with mild ocassional cramping in low abdome n and some back pains. Admits to FM and denies VB, LOF or VD. States that she was seen in ER a oouple of weeks ago and was Dx'ed with Bronchitis but never took the Antibiotic given and still has some ch est congestion and cough. Admits to mild urinary discomfort with constipation and drinks little water . Had PNC in [place] and looking for a Clinic here in town. 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 PMHx: Bronchitis PSHx Negative NKDA Social HX Negative Medications PNV A/P Primigravida at 22 weeks gestation Cervix closed but soft and 25 % effaced + FHT's and no contractions or uterine activity recorded or palpated UA with dehydration and few RBC's. 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 Also advised to take Colace 100 mgs po TID with lots of water Discharge home in Stable and Satisfactory condition and recovery Pelvic Type - PN: Adequate Extremities - PN: Normal Abdomen - PN: Normal Back - PN: Normal Breast - PN: Not Done Lungs - PN: Normal Heart - PN: Normal Thyroid - PN: Normal Neurologic - PN: Normal HEENT - PN: Normal General - PN: Normal FHR - Baseline A Provider: 160 Membranes, Provider: Ruptured Contraction Comments Provider: None Gestation - Est Wks by US: 22.0 EGA AdmitDate IP: 22.0 Vital Signs Provider: Reviewed IP Chief Complaint: Vaginal bleeding; Maternal discomfort NICHD Decel Fetus A IP Provider: None Dilatation, Provider: 0 Effacement, Provider: 0 Station, Provider: floating Genitourinary Exam: Normal DTRs - PN: Normal
[2018-05-23 15:45] VITALS: BP 100/54; PULSE 92; RESP 16; TEMP 97.5
== END 2018-05-19 19:50 | disposition home or self-care (01) ==
LOC: C.EROB 17:59
DX: O46.92 Antepartum hemorrhage, unspecified, second trimester (principal); Z3A.22 22 weeks gestation of pregnancy

== ENCOUNTER 2018-06-18 12:52 | Emergency (ER) | payer MEDICAID ==
[2018-06-18 13:03] VITALS: BMI 23.1
[2018-06-18 13:27] LABS: SQUAMOUS EPITHIAL 27 /hpf (0-5); URINE BACTERIA RARE (<OCC); URINE BILIRUBIN NEGATIVE (NEGATIVE); URINE BLOOD NEGATIVE (NEGATIVE); URINE CLARITY Hazy (Clear); URINE COLOR Yellow (YELLOW); URINE GLUCOSE (UA) NORMAL (Normal); URINE LEUKOCYTE ESTERASE 2+ Leu/uL (Negative); URINE PROTEIN NEGATIVE (NEGATIVE); URINE UROBILINOGEN NORMAL mg/dL (0.2-1.0)
--- NOTE | 2018-06-18 14:20 | OBHP ---
Datetime: 06/18/2018 14:07 IP Adm Impression: No Active Labor IP Adm Impression Other: Right sided sciatic pain IP Admit Plan: Discharge home Admit Comment, IP Provider: A/P: IUP at 26+2 wks with asymoptomatic UTI and right sciatic pain - primagravida - Negative CTXs, LOF, VB - Positive FM and Cat 1 tracing - UTI - UA: + leuk est, nitrates negative - Rx for Macrobid 100mg PO BID x7 days given - Right sciatic pain - rest and massage, frequent breaks at work - increase hydration and tylenol for pain as needed - f/u in clinic this week as scheduled Extremities - PN: Normal Back - PN: Normal General - PN: Normal FHR - Baseline A Provider: 150s Contraction Comments Provider: negative Comments, ACOG Physical Exam: Right leg: negative meera's, no calf tenderness, full passive and acti ve ROM, no swelling or bruising EGA AdmitDate IP: 26.2 Vital Signs Provider: Reviewed; Within Normal Limits IP Chief Complaint: Signs/symptoms UTI; Maternal discomfort NICHD Variability Prov Fetus A: Moderate 6-25bpm NICHD Accel Fetus A IP Provider: 15X15 NICHD Decel Fetus A IP Provider: None Dilatation, Provider: FT Effacement, Provider: 50 Station, Provider: -3 DTRs - PN: Normal
[2018-06-18 18:17] VITALS: BP 99/58; PULSE 95
== END 2018-06-18 14:10 | disposition home or self-care (01) ==
LOC: C.EROB 12:52
DX: O23.42 Unspecified infection of urinary tract in pregnancy, second trimester (principal); Z3A.26 26 weeks gestation of pregnancy; M54.31 Sciatica, right side

== ENCOUNTER 2018-06-22 21:28 | Emergency (ER) | payer BC, MEDICAID ==
[2018-06-22 22:10] VITALS: BMI 22.6
[2018-06-22] MEDS ORDERED: Dextrose 5%/Lactated Ringer's 1,000 ML IV SCH (22:15)
[2018-06-23 03:56] VITALS: BP 107/55; PULSE 77; RESP 18; TEMP 98.8
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
== END 2018-06-22 23:40 | disposition home or self-care (01) ==
LOC: C.EROB 21:28
DX: O26.892 Other specified pregnancy related conditions, second trimester (principal); R04.0 Epistaxis; M54.30 Sciatica, unspecified side; Z3A.26 26 weeks gestation of pregnancy
CPT/HCPCS: 99282; J7120

== ENCOUNTER 2018-09-10 21:52 | Emergency (ER) | payer BC, MEDICAID, OTHER ==
--- NOTE | 2018-09-10 23:00 | OBHP ---
Datetime: 09/10/2018 22:54 IP Adm Impression: Term, intrauterine ; No Active Labor IP Admit Plan: Discharge home Admit Comment, IP Provider: A/P: 28 yo at 38+2 wks w/ decreased FM - primagravida - occ CTXs, neg LOF, neg VB - dec FM - bedside U/S performed, BPP 8/, NAZIA: 11+, FHR 146 - pt reassured, shown baby moving on U/S - labor precautions given - f/u in clinic on 09/13 - d/c home FHR - Baseline A Provider: 140s Membranes, Provider: Intact Contraction Comments Provider: irregular Pool Provider: Negative Nitrazine Provider: Negative EGA AdmitDate IP: 38.2 Vital Signs Provider: Reviewed; Within Normal Limits IP Chief Complaint: Uterine contractions; Decreased movement NICHD Variability Prov Fetus A: Moderate 6-25bpm NICHD Accel Fetus A IP Provider: 15X15 FHR Category Provider Fetus A: Category I NICHD Decel Fetus A IP Provider: None Dilatation, Provider: 1 Effacement, Provider: 60 Station, Provider: -3
[2018-09-11 03:40] VITALS: BP 108/74; PULSE 109; RESP 18; TEMP 98.2
== END 2018-09-10 23:05 | disposition home or self-care (01) ==
LOC: C.EROB 21:52
DX: O36.8130 Decreased fetal movements, third trimester, not applicable or unspecified (principal); Z3A.38 38 weeks gestation of pregnancy

== ENCOUNTER 2018-09-22 13:41 | Inpatient (IN) | payer OTHER ==
[2018-09-22] MEDS ORDERED: Lactated Ringer's 1,000 ML IV ONE (15:35)
[2018-09-22] MEDS ORDERED: Lactated Ringer's 1,000 ML IV SCH (15:45)
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
[2018-09-22 16:12] LABS: BASO # 0.1 K/uL (0.0-0.2); BASO % 0.5 % (0.0-2.0); EOS % 0.3 % (0.0-4.0); HEMOGLOBIN 12.4 g/dL (11.0-16.0); LYMPH # 4.7 K/uL (1.0-4.3); LYMPH % 37.1 % (20.0-40.0); MEAN CORPUSCULAR HEMOGLOBIN 26.6 pg (27.0-31.0); MEAN CORPUSCULAR HGB CONC 31.5 g/dL (33.0-37.0); MEAN PLATELET VOLUME 8.6 fL (7.2-11.7); MONO # 0.6 K/uL (0.0-0.8); MONO % 4.6 % (0.0-10.0); NEUT # 7.3 K/uL (1.8-7.0); NEUT % 57.5 % (50.0-75.0); RBC 4.66 Mil/uL (3.80-5.20); RED CELL DISTRIBUTION WIDTH 14.8 % (11.5-14.5); WHITE BLOOD COUNT 12.7 K/uL (4.8-10.8)
[2018-09-22 16:17] LABS: MEAN CELL VOLUME 84.6 fL (81.0-99.0); SQUAMOUS EPITHIAL 10 /hpf (0-5); URINE BILIRUBIN NEGATIVE (NEGATIVE); URINE BLOOD NEGATIVE (NEGATIVE); URINE CLARITY Hazy (Clear); URINE COLOR Yellow (YELLOW); URINE GLUCOSE (UA) NORMAL (Normal); URINE LEUKOCYTE ESTERASE TRACE Leu/uL (Negative); URINE PROTEIN 1+ mg/dL (NEGATIVE); URINE UROBILINOGEN NORMAL mg/dL (0.2-1.0)
[2018-09-22] MEDS ORDERED: Fentanyl/Bupivacaine HCl 250 ML EPI ONE (16:38)
[2018-09-22] MEDS ORDERED: Lidocaine 2% MPF (5 ml) Inj ONE (17:51)
[2018-09-22] MEDS ORDERED: Nalbuphine HCL 10 mg/ml Ampule IVP ONE (17:55)
--- NOTE | 2018-09-22 17:56 | OBPN ---
Datetime: 09/22/2018 17:50 IP Progress Impression: Normal progression of labor IP Procedures: Artificial ROM IP Progress Plan: Continue present management FHR - Baseline A Provider: 140 IP Progress Note Comment: A/P: at 40wks Labor AROM 5:24pm clear fully dilated - anticipate vaginal delivery Vital Signs Provider: Reviewed; Within Normal Limits NICHD Accel Fetus A IP Provider: 15X15 FHR Category Provider Fetus A: Category I NICHD Variability Prov Fetus A: Moderate 6-25bpm Dilatation, Provider: 10 Station, Provider: 1 NICHD Decel Fetus A IP Provider: None Datetime: 09/22/2018 15:30 Membranes, Provider: Intact Contraction Comments Provider: q2-4 min Effacement, Provider: 90 Datetime: 09/10/2018 22:54 Pool Provider: Negative Nitrazine Provider: Negative Datetime: 06/22/2018 22:11 Gestation - Est Wks by US: 26w 6d
--- NOTE | 2018-09-22 18:42 | OBDS ---
DELIVERY PERSONNEL Delivery Doctor: Dr Lopez Parachute Marker: Merced Arteaga RN Anesthesiologist: Dr Loomis MATERNAL INFORMATION Delivery Anesthesia: Epidural Maternal Complications: None Provider Comments: Pt fully dilated and pushing. Head delivered OA, shoulders and body without diffi culty at 16:18. Placenta delivered spontaneously- intact. Good hemostasis. EBL: 150cc viable female infant apgars 9/9 wt 7lb 14oz LABOR SUMMARY EDC: 09/22/2018 00:00 No. Babies in Womb: 1 LABOR INFORMATION Reason for Induction: Not Applicable Onset of Labor: 09/22/2018 14:48 Complete Dilatation: 09/22/2018 17:18 Group B Beta Strep: Negative (Annotations: 09/03/2018) Steroids Given: None Reason Steroids Not Administered: Not Applicable MEMBRANES Membranes Rupture Method: Artificial Rupture of Membranes: 09/22/2018 17:24 Length of Rupture (hrs): 0.87 Amniotic Fluid Color: Clear Amniotic Fluid Amount: Moderate Amniotic Fluid Odor: None STAGES OF LABOR Stage 1 hrs: 2 Stage 1 min: 30 Stage 2 hrs: 0 Stage 2 min: 58 Stage 3 hrs: 0 Stage 3 min: 5 Total Time in Labor hrs: 3 Total Time in Labor min: 33 VAGINAL DELIVERY Laceration Extension: Second Degree Laceration Type: Perineal; Periurethral Laceration Repair: Yes Laceration Repair Note: Second degree perineal laceration repaired with 2-0 chromic, good hemostasis . Periurethral abrasion (left) - good hemostasis no suture required. Initial Vag Sponge Count: 11 Final Vag Sponge Count: 11 Initial Vag Sharps Count: 2 Final Vag Sharps Count: 2 Sponge Count Correct: Yes Sharps Count Correct: Yes BABY A INFORMATION Delivery Date/Time: 09/22/2018 18:16 Method of Delivery: Vaginal Born in Route : No : N/A Forceps: N/A Vacuum Extraction: N/A Shoulder Dystocia : No SHOULDER DYSTOCIA BABY A Infant Delivery Date/Time: 09/22/2018 18:16 PRESENTATION/POSITION BABY A Presentation: Cephalic Cephalic Presentation: Vertex Vertex Position: Left Occipital Anterior Breech Presentation: N/A PLACENTA INFORMATION BABY A Placenta Delivery Time : 09/22/2018 18:21 Placenta Method of Delivery: Expressed Placenta Status: Delivered SCORES BABY A Heart Rate 1 min: >100 bpm Resp Effort 1 min: Good Cry Reflex Irritability 1 min: Cough or Sneeze or Pulls Away Muscle Tone 1 min: Active Motion Color 1 min: Body [place], Extremities Blue Resuscitation Effort 1 min: Tactile Stimulation SCORE 1 MIN: 9 Heart Rate 5 min: >100 bpm Resp Effort 5 min: Good Cry Reflex Irritability 5 min: Cough or Sneeze or Pulls Away Muscle Tone 5 min: Active Motion Color 5 min: Body [place], Extremities Blue Resuscitation Effort 5 min: N/A SCORE 5 MIN: 9 INFANT INFORMATION BABY A Gestational Age at Delivery: 40.0 Gestational Status: Term Outcome : Liveborn Condition : Stable Sex: Female IDENTIFICATION/MEDS BABY A ID Band Number: [id number] ID Band Location: Left Leg; Left Arm Sensor Applied: Yes Sensor Number: [id number] Sensor Location : Cord Clamp Vitamin K Given : Not Given Erythromycin Given: Not Given WEIGHT/LENGTH BABY A Birthweight (gms): 3565 Infant Weight (lb): 7 Weight (oz): 14 Infant Length Inches: 20.50 Infant Length cms: 52.1 CORD INFORMATION BABY A No. Cord Vessels: 3 Nuchal Cord : N/A Cord Blood Taken: Yes Infant Suction: Mouth; Nose ASSESSMENT BABY A Complications: None Physical Findings at Delivery: Within Normal Limits Infant Respirations: Appears Normal Performance Tester/ALS Called : No Care By: Dayne Colvin RN Transferred To: Remains with Mother
[2018-09-23] MEDS ORDERED: Benzocaine/Menthol 20%-0.5% Topical Spray (60 ml) EXT PRN (07:24)
[2018-09-23 09:30] LABS: BASO % 0.1 % (0.0-2.0); EOS % 0.2 % (0.0-4.0); LYMPH # 3.6 K/uL (1.0-4.3); LYMPH % 25.8 % (20.0-40.0); MEAN CORPUSCULAR HEMOGLOBIN 26.7 pg (27.0-31.0); MEAN CORPUSCULAR HGB CONC 31.4 g/dL (33.0-37.0); MEAN PLATELET VOLUME 8.5 fL (7.2-11.7); MONO % 7.4 % (0.0-10.0); NEUT # 9.2 K/uL (1.8-7.0); NEUT % 66.5 % (50.0-75.0); RBC 3.68 Mil/uL (3.80-5.20); RED CELL DISTRIBUTION WIDTH 14.7 % (11.5-14.5); WHITE BLOOD COUNT 13.9 K/uL (4.8-10.8)
[2018-09-23] MEDS: Oxycodone/Acetaminophen 5/325 mg Tab PO PRN ×2 (09:39→14:44)
[2018-09-23 09:46] LABS: HEMOGLOBIN 9.8 g/dL (11.0-16.0)
--- NOTE | 2018-09-23 10:45 | OBPPN ---
Datetime: 09/23/2018 10:41 PP Pain Prov: Within normal limits PP Nausea Prov: Denies PP Flatus Prov: Yes PP BM Prov: Yes PP Breasts Prov: Normal PP Abdomen/Uterus Prov: Normal PP Lochia Prov: Normal PP Extremities Prov: Normal PP Comments Phys Exam Prov: ABD: Soft, Nt Uterus firm at umbilicus Etr: No calf tenderness PP Impression Prov: Normal progression PP Plan Prov: Continue present management PP Progress Note Prov: PPD #1 Pt doing well. No complaints today. Continue Post care IP PP Procedures: None Vital Signs Provider PP: Reviewed; Within Normal Limits
[2018-09-24 00:30] VITALS: RESP 20
[2018-09-24] MEDS: Oxycodone/Acetaminophen 5/325 mg Tab PO PRN ×2 (01:15→05:24)
[2018-09-24 07:56] VITALS: BP 109/67; PULSE 69; TEMP 98.2; O2SAT 98
--- NOTE | 2018-09-24 08:51 | OBDCSUM ---
Datetime: 09/24/2018 08:49 Discharged to, Provider: Home Follow up at, Provider: clinic Disch Instr Activity: Normal activity Disch Instr Diet: Regular Discharge Instructions, Provider: Routine instructions given Discharge Diagnosis, Provider: Term Delivered Discharge Time: 09/24/2018 08:50 Follow up in weeks, Provider: 6 weeks Contraception after Delivery: Undecided
--- NOTE | 2018-09-24 08:51 | OBPPN ---
Datetime: 09/24/2018 08:48 PP Pain Prov: Within normal limits PP Lochia Prov: Normal PP Extremities Prov: Normal PP Impression Prov: Normal progression PP Plan Prov: Discharge PP Progress Note Prov: A/P: s/p PPD#2 - stable, afebrile - no issues - +breast/bottle - d/c home IP PP Procedures: None
== END 2018-09-24 12:06 | disposition home or self-care (01) | DRG 373 ==
LOC: C.EROB 13:41 → C.4D 14:50 → C.4M 20:35
PROVIDERS: ADMIT Obstetrics & Gynecology; ATTEND Obstetrics & Gynecology
PROC: 10E0XZZ Delivery of Products of Conception, External Approach (ICD-10-PCS; principal; 2018-09-22)
PROC: 0KQM0ZZ Repair Perineum Muscle, Open Approach (ICD-10-PCS; 2018-09-22)
PROC: 10907ZC Drainage of Amniotic Fluid, Therapeutic from Products of Conception, Via Natural or Artificial Opening (ICD-10-PCS; 2018-09-22)
DX: O70.1 Second degree perineal laceration during delivery (principal); Z3A.40 40 weeks gestation of pregnancy; Z37.0 Single live birth

== ENCOUNTER 2018-12-23 21:30 | Emergency (ER) | payer MEDICAID, OTHER ==
[2018-12-23 21:30] VITALS: BMI 22.6
[2018-12-23 21:38] VITALS: BP 111/73; PULSE 84; RESP 16; TEMP 98; O2SAT 100
[2018-12-23] MEDS ORDERED: Sodium Chloride 0.9% 1,000 ML IV STA (22:16)
[2018-12-23] MEDS ORDERED: DiphenhydrAMINE 50 mg/ml Inj IVP STA (22:17)
[2018-12-23] MEDS ORDERED: DiphenhydrAMINE 50 mg/ml Inj ONE (22:23)
--- NOTE | 2018-12-23 23:49 | C.PDOC ---
History Of Present Illness 28 year old female with a history of migraines presents to the ED complaining of a headache that she has had for the past 8 days. Patient takes Immitrex and Fioricet with no improvements. Denies fever, neck stiffness, and vomiting. Time Seen by Provider: 12/23/18 22:03 Chief Complaint (Nursing): Headache History Per: Patient History/Exam Limitations: no limitations Onset/Duration Of Symptoms: Days (8) Current Symptoms Are (Timing): Still Present Preceeding Symptoms: Known Migraine Symptoms Associated Symptoms: denies: Vomiting Past Medical History Reviewed: Historical Data, Nursing Documentation, Vital Signs Vital Signs: Last Vital Signs Temp 98 F 12/23/18 21:36 Pulse 84 12/23/18 21:36 Resp 16 12/23/18 21:36 BP 111/73 12/23/18 21:36 Pulse Ox 100 12/23/18 21:36 Primary Care Provider: FAMILY PROVIDER,NO - Medical History PMH: Migraine - [facility] Procedures DELIVERY OF PRODUCTS OF CONCEPTION, EXTERNAL APPROACH (09/22/18) DRAINAGE OF AMNIOTIC FL, THERAP FROM POC, VIA OPENING (09/22/18) REPAIR PERINEUM MUSCLE, OPEN APPROACH (09/22/18) Family History: States: Unknown Family Hx - Social History Hx Tobacco Use: No Hx Alcohol Use: Yes Hx Substance Use: No - Immunization History Hx Tetanus Toxoid Vaccination: No Hx Influenza Vaccination: No Hx Pneumococcal Vaccination: No Review Of Systems Constitutional: Negative for: Fever, Chills, Weakness ENT: Negative for: Nose Discharge, Nose Congestion, Throat Pain Cardiovascular: Negative for: Chest Pain Respiratory: Negative for: Cough, Shortness of Breath Gastrointestinal: Negative for: Nausea, Vomiting, Diarrhea Genitourinary: Negative for: Dysuria, Hematuria Musculoskeletal: Negative for: Back Pain Skin: Negative for: Rash Neurological: Negative for: Weakness, Numbness, Dizziness Physical Exam - Physical Exam Appears: Well, Non-toxic, No Acute Distress Skin: Normal Color, Warm, Dry Head: Atraumatic, Normacephalic Eye(s): bilateral: Normal Inspection, PERRL, EOMI Ear(s): Bilateral: Normal Nose: Normal Oral Mucosa: Moist Throat: Normal, No Exudate, Other (patent airway) Neck: Normal ROM, Supple Chest: Symmetrical Cardiovascular: Rhythm Regular, No Murmur Respiratory: Normal Breath Sounds, No Accessory Muscle Use Back: Other (ambulating with steady, upright gait) Extremity: Bilateral: Atraumatic, Normal ROM Pulses: Left Radial: Normal, Right Radial: Normal Neurological/Psych: Oriented x3, Normal Speech, Normal Cognition, Normal Cranial Nerves, Normal Motor, Normal Sensation, Normal Reflexes, Eyes Open With Command ED Course And Treatment O2 Sat by Pulse Oximetry: 100 (RA) Pulse Ox Interpretation: Normal Medical Decision Making Medical Decision Making: Plan: IV cocktail administered. patient reported improvement of symptoms at this time. she remained well appearing throughout her visit. Disposition Counseled Patient/Family Regarding: Diagnosis, Need For Followup - Disposition Disposition: HOME/ ROUTINE Disposition Time: 23:49 Condition: IMPROVED Instructions: Migraine Headache (DC) Forms: [facility] (Amharic), General Discharge Instructions - Clinical Impression Clinical Impression: Migraine - Scribe Statement The provider has reviewed the documentation as recorded by the Scribe (Jerrica Huston) All medical record entries made by the Scribe were at my direction and personally dictated by me. I have reviewed the chart and agree that the record accurately reflects my personal performance of the history, physical exam, medical decision making, and the department course for this patient. I have also personally directed, reviewed, and agree with the discharge instructions and disposition.
== END 2018-12-23 23:56 | disposition home or self-care (01) ==
LOC: C.ER 21:30
DX: G43.909 Migraine, unspecified, not intractable, without status migrainosus (principal)
CPT/HCPCS: 81025; 96361; 96374; 96375; 99284; J1200; J1885; J2765; J7040